=== PATIENT | female | born 1960 ===

== ENCOUNTER 2020-12-28 18:22 | Emergency (ER) | payer OTHER, SELFPAY ==
--- NOTE | 2020-12-28 19:20 | EDM.PDOC ---
ED HPI GENERAL MEDICAL PROBLEM - General Chief Complaint: ENT Problem Stated Complaint: NOSE BLEED Time Seen by Provider: 12/28/20 18:55 Source of Information: Reports: Patient History Limitations: Reports: No Limitations - History of Present Illness INITIAL COMMENTS - FREE TEXT/NARRATIVE: Mrs. Beltran is a pleasant 60-year-old woman who now presents the ED after waking with right-sided painless epistaxis around 02:00 this morning. She states that the bleeding has started and stopped about 7 times today. She has been treating the bleeding with packing her right nostril, although she has not tried pinching the nostril. She denies a significant history of epistaxis. She is not on an anticoagulant. She denies recent trauma to the nose. She acknowledges that she does not have a humidifier in her home, but states that she has already ordered one. Here in the ED, the patient is found to be hemodynamically stable, afebrile, saturating 92% on room air. She does not appear to be in any distress. The patient states that she is currently on Bactrim for treatment of an infected spider bite to her left buttock. Otherwise, prior to this morning, the patient denies having a recent fever, chills, sore throat, ear pain, nasal or sinus congestion, cough, dyspnea, chest pain, palpitations, nausea, vomiting, constipation, diarrhea, abdominal pain, urinary symptoms, recent weight gain or weight loss, recent bloody bowel movements or black bowel movements, recent joint aches, headaches, or rashes. The patient's PCP is Garcia Hood NP. - Related Data Allergies Allergy/AdvReac Type Severity Reaction Status Date / Time No Known Allergies Allergy Verified 12/28/20 18:48 Home Meds: Home Meds Chlorthalidone 25 mg PO DAILY 12/28/20 [History] Losartan [Cozaar] 100 mg PO DAILY 12/28/20 [History] Sulfamethoxazole/Trimethoprim [Sulfamethoxazole-Tmp Ds Tablet] 1 each PO BID 12/28/20 [History] Past Medical History Cardiovascular History: Reports: Hypertension Endocrine/Metabolic History: Reports: Hypothyroidism, Obesity/BMI 30+ - Past Surgical History GI Surgical History: Reports: Appendectomy Female Surgical History: Reports: Hysterectomy Musculoskeletal Surgical History: Reports: Arthroscopic Knee Social & Family History - Tobacco Use Tobacco Use Status *Q: Never Tobacco User - Caffeine Use Caffeine Use: Reports: Coffee - Alcohol Use Alcohol Use History: Yes Alcohol Use Frequency: Rarely - Recreational Drug Use Recreational Drug Use: No - Living Situation & Occupation Living situation: Reports: , with Family (Son) Occupation: Retired ED ROS ENT - Review of Systems Review Of Systems: Comprehensive ROS is negative, except as noted in HPI. ED EXAM, ENT - Physical Exam Exam: See Below Exam Limited By: No Limitations General Appearance: Alert, WD/WN, No Apparent Distress Eye Exam: Bilateral Eye: EOMI, Normal Inspection Ears: Normal External Exam, Normal Canal, Hearing Grossly Normal, Normal TMs Nose: Normal Mucousa, Other (There is a very tiny, punctate spot of blood on the right nasal septum that did not change after I reexamined her after 10 minutes. No other wet or dry blood seen within either nostril.) Mouth/Throat: Normal Inspection, Normal Gums, Normal Lips, Normal Oropharynx (no blood seen within the posterior oropharynx), Normal Teeth Head: Atraumatic, Normocephalic Neck: Normal Inspection, Supple, Non-Tender, Full Range of Motion. No: Lymphadenopathy (L), Lymphadenopathy (R) ED ENT PROCEDURES - Epistaxis Procedure Indication: Epistaxis, Uncontrolled Recent anticoagulants/antiplatlets: No Uncontrolled HTN: No Recent septal/nasal surgery: No Site of bleeding: Right Nare, Anterior Anterior Packing: Inflatable Nasal Tampon (5.5 cm Rapid Rhino) Complications: No Course - Vital Signs Last Recorded V/S: Last Vital Signs Temp 35.9 C L 12/28/20 18:46 Pulse 92 12/28/20 18:46 Resp 16 12/28/20 18:46 BP 132/78 12/28/20 18:46 Pulse Ox 92 L 12/28/20 18:46 - Orders/Labs/Meds Labs: Laboratory Tests 12/28/20 Range/Units 20:45 WBC 10.95 H (3.98-10.04) K/mm3 RBC 3.85 L (3.98-5.22) M/mm3 Hgb 11.6 D (11.2-15.7) gm/dl Hct 36.4 (34.1-44.9) % MCV 94.5 (79.4-94.8) fl MCH 30.1 (25.6-32.2) pg MCHC 31.9 L (32.2-35.5) g/dl RDW Std Deviation 43.8 (36.4-46.3) fL Plt Count 377 H (182-369) K/mm3 MPV 9.8 (9.4-12.3) fl Neutrophils % (Manual) 78 H (40-60) % Band Neutrophils % 0 (0-10) % Lymphocytes % (Manual) 19 L (20-40) % Atypical Lymphs % 0 % Monocytes % (Manual) 1 L (2-10) % Eosinophils % (Manual) 2 (0.7-5.8) % Basophils % (Manual) 0 L (0.1-1.2) Platelet Estimate Adequate RBC Morph Comment Normal Meds: Medications Discontinued Medications Generic Name Dose Route Start Last Admin Trade Name Lincoln PRN Reason Stop Dose Admin Acetaminophen 650 mg 12/28/20 20:49 12/28/20 20:53 Acetaminophen 325 Mg Tab PO 12/28/20 20:50 650 mg NOW ONE Administration Sodium Chloride 500 mls @ 1,000 mls/hr 12/28/20 20:18 12/28/20 20:25 Normal Saline IV 12/28/20 20:47 1,000 mls/hr .BOLUS ONE Administration Ondansetron HCl 4 mg 12/28/20 20:18 12/28/20 20:25 Ondansetron 4 Mg/2 Ml Sdv IVPUSH 12/28/20 20:19 4 mg ONETIME ONE Administration - Re-Assessments/Exams Free Text/Narrative Re-Assessment/Exam: 12/28/20 19:15 As above, the patient has been experiencing right-sided epistaxis on and off ever since 2:00 this morning, that she has been able to stop using packing. 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 We discussed the option of cautery, however, she elected against it. Instead, she has applied a thin smear of some antibiotic ointment to both sides of her nasal septum, and, going forward, I will have her apply some petroleum jelly 2 or 3 times a day to keep the mucous membranes moist. In addition, the patient states that she already ordered a humidifier, which should be arriving soon. I explained to the patient that if she redevelops epistaxis, that she is to sit upright, tilt her head slightly forward, and pinch both sides of her nostrils tightly for 10 to 15 minutes. If she wishes, she could also pinch with an ice cube. While the patient does not need to see an ENT at this time, I will refer her to one, in the event that her epistaxis continues. 12/28/20 19:22 Notified by Vira NIX that the patient's nose started bleeding. 12/28/20 20:20 The patient states that she pinched her nose and that the bleeding stopped, but that it started again. She then swallowed some blood and has been vomiting. On examination, an active bleed from the previously identified site is seen. I therefore placed a 5.5 cm anterior Rapid Rhino. Due to the patient's concerns about the amount she has bled, I have ordered a CBC, as well as a 500 ml bolus of IV fluid and some IV Zofran. 12/28/20 20:49 I reevaluated the patient and instilled some additional air into the balloon. The bleeding has stopped. Her nausea improved following IV Zofran. She requested some Tylenol. 12/28/20 21:24 The patient's CBC is remarkable for mild leukocytosis of 10.95, and mild thrombocytosis of 377,000, with the remainder of her CBC being unremarkable. 12/28/20 21:26 I reevaluated the patient. The bleeding has not resumed. Her nausea has resolved. I will discharge her home with a referral to ENT, as above. If she cannot get into see ENT by Tuesday, she can follow-up in the clinic to have the balloon removed. Departure - Departure Time of Disposition: 21:26 Disposition: Home, Self-Care 01 Condition: Good Clinical Impression: Anterior epistaxis - Discharge Information *PRESCRIPTION DRUG MONITORING PROGRAM REVIEWED*: Not Applicable *COPY OF PRESCRIPTION DRUG MONITORING REPORT IN PATIENT JOSE ELIAS: Not Applicable Instructions: Nosebleed, [id number] Referrals: Garcia Hood NP [Primary Care Provider] - Nash Valdez MD [Ordering Only Provider] - Forms: ED Department Discharge Additional Instructions: You were seen in the emergency room for a recurrent right-sided nosebleed today. Work-up in the ER included a CBC, which returned grossly unremarkable. You are not anemic. Initially, there was no bleeding, however, the bleeding resumed in the ER, therefore a 5.5 cm Rapid Rhino balloon was placed in your right nostril, which successfully stopped the bleeding. We recommend that you leave the balloon alone. We recommend that you contact the office of the [facility] (ENT) Dr. Nash Valdez first thing tomorrow morning, to see if you can be seen either tomorrow or Tuesday. If you are unable to be seen by Dr. Mckeon by Tuesday, you may follow-up in the clinic to have the Rapid Rhino removed. Not try to remove it yourself. You may take [id number] Tylenol as needed for discomfort. If any other problems, please do not hesitate to return to the ER. Sepsis Event Note (ED) - Evaluation Sepsis Screening Result: No Definite Risk - Focused Exam Vital Signs: Vital Signs Temp Pulse Resp BP Pulse Ox 12/28/20 18:46 35.9 C L 92 16 132/78 92 L
[2020-12-28] MEDS ORDERED: Sodium Chloride 0.9% 500 ML IV ONE (20:18)
[2020-12-28] MEDS ORDERED: Ondansetron 4 MG/2 ML SDV IVPUSH ONE (20:18)
[2020-12-28] MEDS ORDERED: Acetaminophen 325 MG Tab PO ONE (20:49)
== END 2020-12-28 21:36 | disposition home or self-care (01) ==
LOC: JD.ED 18:22
DX: R04.0 Epistaxis (principal); I10 Essential (primary) hypertension; E66.9 Obesity, unspecified; Z68.36 Body mass index [BMI] 36.0-36.9, adult; Z79.899 Other long term (current) drug therapy
CPT/HCPCS: 30903; 36415; 85007; 85027; 96374; 99283; A9270; J2405; J7030; 30901